=== PATIENT | male | born 1965 | race African-American/Black ===

== ENCOUNTER 2017-12-07 10:25 | Day surgery (SDC) | payer OTHER ==
[2017-12-05 13:59] VITALS: BMI 29.0
[2017-12-07] MEDS ORDERED: MIDAZOLAM HCL 2 MG/2 ML SINGLE DOSE VIAL ONE (10:34)
[2017-12-07] MEDS ORDERED: ONDANSETRON 4 MG/2 ML VIAL ONE (11:18)
[2017-12-07] MEDS ORDERED: LIDOCAINE HCL 2% (50ML VIAL) INF ONE (11:20)
[2017-12-07] MEDS ORDERED: oxyCODONE HCL 5 MG TABLET PO PRN (11:40)
[2017-12-07] MEDS ORDERED: ONDANSETRON 4 MG/2 ML VIAL IVPUSH PRN (11:40)
[2017-12-07] MEDS ORDERED: LACTATED RINGERS SOLUTION 1,000 ML IV SCH (11:45)
[2017-12-07] MEDS ORDERED: BUPIVACAINE HCL/PF 0.5% (5MG/ML) 10 ML VIAL ONE (11:46)
[2017-12-07 12:11] VITALS: TEMP 98.4
[2017-12-07 13:27] VITALS: BP 125/78; PULSE 61
--- NOTE | 2017-12-07 14:00 | OP ---
DATE OF OPERATION: 12/07/2017 PREOPERATIVE DIAGNOSIS: Left ring trigger finger. POSTOPERATIVE DIAGNOSIS: Left ring trigger finger. OPERATION: Left ring trigger finger release. ANESTHESIA: Local with sedation. COMPLICATIONS: None. ESTIMATED BLOOD LOSS: Minimal. INDICATION FOR PROCEDURE: The patient is a 52-year-old male with the above finding indicated for operative treatment. Risks, benefits, and alternatives were discussed with the patient at length. Proper informed consent was obtained. DESCRIPTION OF PROCEDURE: After proper identification of patient and correct operative site, the patient was brought to the operating room and placed supine on the operative table, prominences well padded. Sedation was given by the anesthesiologist. Local anesthesia was given with 2% lidocaine. Left upper extremity was prepped and draped in the usual sterile fashion. A well-padded tourniquet was placed with a sterile prep. Esmarch bandage used to exsanguinate the left upper extremity. Tourniquet was inflated to 250 mmHg. A longitudinal incision was made over the A1 tram. Incision was taken sharply through the skin with blunt dissection through the subcutaneous tissues. The A1 tram was identified and divided longitudinally. The patient was asked to flex and extend his finger. No further treatment was noted. The wound was repaired with a 5-0 nylon suture. Sterile dressings were applied. The patient was brought to the recovery room in stable condition. He tolerated the procedure well. VINNY HOYOS M.D. [id number]
== END 2017-12-07 13:28 | disposition home or self-care (01) ==
LOC: FASU 10:25
PROVIDERS: ATTEND Orthopaedic Surgery Hand Surgery
PROC: 0LN80ZZ Release Left Hand Tendon, Open Approach (ICD-10-PCS; principal; 2017-12-07 12:00)
DX: M65.342 Trigger finger, left ring finger (principal)